=== PATIENT | female | born 1985 ===

== ENCOUNTER 2024-10-31 09:45 | Inpatient (IN) | payer OTHER ==
[~2024-10-31] VITALS: Ht 231.1 cm; Wt 79.4 kg
[2024-10-31 11:37] VITALS: BP 110/74
[2024-10-31] MEDS ORDERED: SYNTHROID88 MCG PO (11:42)
[2024-10-31 12:06] LABS: HEMATOCRIT 38.1 % (36.0-45.00); HEMOGLOBIN 12.5 g/dL (12.0-15.00); MEAN CELL VOLUME 87.4 fL (80.00-100.00); MEAN CORPUSCULAR HEMOGLOBIN 28.6 pg (27.00-32.0); MEAN CORPUSCULAR HGB CONC 32.7 g/dl (32.0-36.0); PLATELET COUNT 266 K/uL (150-450); RED BLOOD COUNT 4.36 M/uL (4.00-6.00); RED CELL DISTRIBUTION WIDTH 14.3 % (11.5-14.5)
[2024-10-31 12:17] LABS: URINE APPEARANCE Clear; URINE BILIRRUBIN Negative (NEGATIVE); URINE BLOOD Small; URINE COLOR Yellow; URINE GLUCOSE Negative (NEGATIVE); URINE KETONE Negative (NEGATIVE); URINE LEUKOCYTE Negative; URINE NITRATE Negative; URINE PROTEIN Negative (NEGATIVE); URINE UROBILINOGEN 0.2 E.U./dl
[2024-10-31 12:18] LABS: URINE BACTERIA 75.8 uL (0.0-1933); URINE EPITHELIAL CELLS 11.8 uL (0.0-38.8); URINE RBC 5.8 uL (0.0-20.8); URINE WBC 4.2 uL (0.0-23.2)
[2024-10-31 12:24] LABS: URINE CAST 0.29 uL (0.0-1.40)
[2024-10-31 13:15] LABS: INR 1.03; PARTIAL THROMBOPLASTIN TIME 30.5 SECONDS (22.0-34.0); PROTHROMBIN TIME 11.2 SECONDS (9.0-11.5)
[2024-10-31 13:21] LABS: ALBUMIN 4.3 gm/dL (3.4-5.0); BILIRUBIN TOTAL 0.64 mg/dL (0.3-1.2); CALCIUM 9.5 mg/dL (8.5-10.1); CREATININE SERUM 0.81 mg/dL (0.55-1.02); GFR 78.31; GLOBULINA 3.6 G/DL (2.4-3.5); POTASSIUM 3.92 mEq/L (3.5-5.1); TOTAL PROTEIN 7.9 gm/dL (6.4-8.2)
[2024-11-09] MEDS ORDERED: DEXAMETHASONE SODIUM PHOSPHATE 4 MG/ML VIAL ONE (09:21)
[2024-11-09] MEDS ORDERED: ONDANSETRON HCL 2 MG/ML VIAL IV PRN (10:45)
[2024-11-09] MEDS ORDERED: ENALAPRILAT DIHYDRATE 1.25 MG/ML VIAL IV PRN (10:45)
[2024-11-09] MEDS ORDERED: MORPHINE SULFATE 4 MG/ML VIAL IV ONE (11:30)
[2024-11-09 14:36] VITALS: BP 124/85; O2SAT 97
[2024-11-09 16:47] VITALS: BP 109/70; O2SAT 100
[2024-11-09] MEDS ORDERED: CYCLOBENZAPRINE HCL 5 MG TABLET PO SCH (17:00)
[2024-11-09] MEDS ORDERED: TRAMADOL HCL 50 MG TABLET PO SCH ×2 (17:00)
[2024-11-09] MEDS ORDERED: ACETAMINOPHEN 500 MG GEL..CAP PO SCH (17:00)
[2024-11-09] MEDS ORDERED: PANTOPRAZOLE SODIUM 40 MG/VIAL VIAL IV PUSH SCH (21:00)
[2024-11-10 01:47] VITALS: BP 99/62; O2SAT 99
[2024-11-10 08:00] VITALS: BP 119/69; O2SAT 100
[2024-11-10] MEDS ORDERED: LEVOTHYROXINE SODIUM 88 MCG TABLET PO SCH (09:00)
== END 2024-11-10 09:37 | disposition home or self-care (01) | DRG 627 ==
LOC: O/R 11-09 05:15 → SURH 11-09 09:45
PROVIDERS: ADMIT Surgery; ATTEND Surgery
PROC: 0GTG0ZZ Resection of Left Thyroid Gland Lobe, Open Approach (ICD-10-PCS; principal; 2024-11-09 11:30)
DX: C73 Malignant neoplasm of thyroid gland (principal)